=== PATIENT | female | born 1990 | race Caucasian/White ===

== ENCOUNTER 2017-06-06 08:18 | Emergency (ER) | payer OTHER ==
[~2017-06-06] VITALS: Ht 177.8 cm; Wt 82.0 kg
[2017-06-06 08:21] VITALS: BP 153/95; PULSE 107; RESP 16; TEMP 98.2; O2SAT 97
--- NOTE | 2017-06-06 08:42 | PD ---
HPI Chief Complaint: Injury Time Seen by Provider: 08:30 Travel History International Travel<30 days: Yes Contact w/Intl Traveler<30days: Yes Name of Country Traveled to: [place] Traveled to known affect area: No History of Present Illness HPI 27-year-old female patient presents the emergency department with left lateral foot pain since yesterday. Patient was working out when she stepped wrong and felt something "pop". She now is 7 out of 10 pain, and difficulty ambulating. She denies any other injury. She has no known drug allergies PFSH Past Medical History Medical History: Denies Significant Hx ?: Not LMP: 05/11/17 Past Surgical History Surgical History: No Previous Surgery Social History Alcohol Use: Yes Tobacco Use: No Substance Use: No Allergies-Medications (Allergen,Severity, Reaction): Coded Allergies: No Known Allergies (Unverified , 06/06/17) Reported Meds & Prescriptions Reported Meds & Active Scripts Active Ibuprofen 600 Mg Tab 600 Mg PO Q6H PRN Review of Systems Except as stated in HPI: all other systems reviewed are Neg General / Constitutional: No: Fever Eyes: No: Visual changes HENT: No: Headaches Cardiovascular: No: Chest Pain or Discomfort Respiratory: No: Shortness of Breath Gastrointestinal: No: Abdominal Pain Genitourinary: No: Dysuria Musculoskeletal: Positive: Arthralgias, Limited ROM, Pain (see history present illness) Skin: No Rash Neurologic: No: Weakness Psychiatric: No: Depression Endocrine: No: Polydipsia Hematologic/Lymphatic: No: Easy Bruising Physical Exam Narrative GENERAL: Patient appears in mild distress SKIN: Warm and dry. Normal color. Normal turgor. There is what appears to be ecchymosis to the left lateral foot below the lateral malleolus. EYES: Pupils equal and round. No scleral icterus. No injection or drainage. ENT: No nasal bleeding or discharge. Mucous membranes pink and moist. Pharynx is clear. Airway is patent. NECK: Trachea midline. Neck is supple and nontender. CARDIOVASCULAR: Regular rate and rhythm. RESPIRATORY: No accessory muscle use. Clear to auscultation. Breath sounds equal bilaterally. MUSCULOSKELETAL: Extremities without clubbing, cyanosis, or edema. No obvious deformities. Patient has point tenderness over the left lateral foot below the malleolus. There is mild swelling and ecchymosis to this area. Range of motion is somewhat limited secondary to pain. NEUROLOGICAL: Awake and alert. No obvious cranial nerve deficits. Motor grossly within normal limits. Five out of 5 muscle strength in the arms and legs. Normal speech. PSYCHIATRIC: Appropriate mood and affect; insight and judgment normal. Data Data Last Documented VS Vital Signs Date Time Temp Pulse Resp B/P (MAP) Pulse Ox O2 Delivery O2 Flow Rate FiO2 06/06/17 08:21 98.2 107 16 153/95 (114) 97 Orders Orders Foot, Complete (Cri3unt) (06/06/17 08:28) Ice/Cold Pack (06/06/17 08:28) Crutches (06/06/17 09:19) Splint Or Brace Apply/Monitor (06/06/17 09:19) [facility] Medical Decision Making Medical Screen Exam Complete: Yes Emergency Medical Condition: Yes Differential Diagnosis Left foot sprain. Ankle sprain. Fracture. Narrative Course Patient is medically stable at time of exam. X-rays of the left foot ordered. Ice is placed left foot for comfort. X-ray shows no acute fracture per radiologist. Patient will be placed in an ankle air cast splint, and Yimi wrap. She is given crutches for ambulation as needed. Patient follow with primary care physician, and re-x-ray if symptoms are not improving in the next week. Diagnosis Primary Impression: Sprain of left foot Qualified Codes: S93.602A - Unspecified sprain of left foot, initial encounter Referrals: Primary Care Physician Patient Instructions: Ankle Stirrup Splint (ED), Crutch Instructions (ED), General Instructions Departure Forms: Work Release Enter return to work date: Jun 07, 2017 Special Instructions: Patient to use crutches and splint for the next week as needed. Additional Instructions: X-ray shows no acute fracture per radiologist. Patient will be placed in an ankle air cast splint, and Yimi wrap. She is given crutches for ambulation as needed. Patient follow with primary care physician, and re-x-ray if symptoms are not improving in the next week. Med/Other Pt SpecificInfo: Prescription(s) given Scripts Ibuprofen (Ibuprofen) 600 Mg Tab 600 MG PO Q6H Y for Pain/Inflammation, #40 TAB 0 Refills Prov: Leena Conde MD 06/06/17 Disposition: 01 DISCHARGE HOME Condition: Stable Conor Dubon Jun 06, 2017 08:42
--- NOTE | 2017-06-06 09:08 | RADRPT ---
EXAM DATE/TIME: 06/06/2017 08:54 [facility] COMPARISON: No previous studies available for comparison. INDICATIONS : Tripped yesterday twisting left foot. Pain with bruising top of foot into base 5th metatarsal. MEDICAL HISTORY : None. SURGICAL HISTORY : None. ENCOUNTER: Initial ACUITY: 2 days PAIN SCORE: 7/10 LOCATION: Left foot. FINDINGS: Three view examination of the left foot demonstrates no soft tissue swelling, dislocation, or fractur e. The tarsal bones appear intact. The interphalangeal and metatarsophalangeal joints are intact. The calcaneus is intact. Bony mineralization is normal. CONCLUSION: Unremarkable examination of the left foot. There is ossific fragment distal to the tip of lateral ma lleolus I suspect an old fracture. Skip Camejo MD on June 06, 2017 at 9:05 Board Certified Radiologist. This report was verified electronically.
[2017-06-06] MEDS ORDERED: IBUP-232 PO (09:21)
== END 2017-06-06 09:43 | disposition home or self-care (01) ==
LOC: NEPD 08:18
DX: S93.602A Unspecified sprain of left foot, initial encounter (principal); X50.9XXA Other and unspecified overexertion or strenuous movements or postures, initial encounter
CPT/HCPCS: 29515; 73630; 99283; E0113; L1906